=== PATIENT | female | born 1965 | race Caucasian/White ===

== ENCOUNTER 2019-06-15 08:28 | Emergency (ER) | payer BC ==
[2019-06-15 08:34] VITALS: RESP 18; TEMP 98.1
--- NOTE | 2019-06-15 09:04 | ED ---
SOB HPI - General Chief Complaint: Shortness of Breath Stated Complaint: SOB Time Seen by Provider: 06/15/19 08:40 Source: patient Mode of arrival: ambulatory Limitations: no limitations - History of Present Illness Initial Comments: 54-year-old female who denies PMH presenting today for chief complaint of shortness of breath chest discomfort cough body aches x 6 days. Patient states that her symptoms began on June 08 she developed some shortness of breath while ambulating and had a cough at that time. She states she has occasional body aches. Admits to diarrhea x 3 days. Patient now stateshas noticed some discomfort in the chest she states it feels tight but does not feel like this is chest pain. Patient denies any jaw or arm pain. Denies pain with deep inspiration denies any leg swelling. Patient denies a known history of DVT pulmonary embolism hemoptysis recent travel recent immobilization patient states that 3 of her co-workers family members have tested positive for Covid-19, no direct contact. Patient denies recording fevers at home. Patient denies any other complaints. Upon arrival patient does appear well there is no signs of acute distress. - Related Data Home Medications Medication Instructions Recorded Confirmed Albuterol Nebulized [Ventolin 2.5 mg INHALATION RT-Q4H PRN 06/15/19 06/15/19 Nebulized] Albuterol Sulfate [Proair Hfa] 1 - 2 puff INHALATION RT-Q6H PRN 06/15/19 0410/26 Estradiol Cream [Estrace Cream 1 gm VAGINAL Q7DAYS PRN 06/15/19 06/15/19 0.01%] Estradiol [Estradiol 0.1 MG Patch] 1 patch TRANSDERM MOTH 06/15/19 06/15/19 Lansoprazole [Prevacid] 30 mg PO BID 06/15/19 06/15/19 Previous Rx's Medication Instructions Recorded Azithromycin [Zithromax] 0 mg PO DIRECTED #6 tab 06/15/19 Allergies Allergy/AdvReac Type Severity Reaction Status Date / Time aspirin Allergy Unknown Verified 06/15/19 10:43 Review of Systems ROS Statement: Those systems with pertinent positive or pertinent negative responses have been documented in the HPI. ROS Other: All systems not noted in ROS Statement are negative. Past Medical History Past Medical History: No Reported History History of Any Multi-Drug Resistant Organisms: None Reported Past Surgical History: Hysterectomy, Orthopedic Surgery Additional Past Surgical History / Comment(s): hand Past Psychological History: No Psychological Hx Reported Smoking Status: Never smoker Past Alcohol Use History: None Reported Past Drug Use History: None Reported General Exam - General Exam Comments Initial Comments: General: The patient is awake and alert, in no distress, and does not appear acutely ill. Eye: +3 mm pupils are equal, round and reactive to light, extra-ocular movements are intact. No nystagmus. There is normal conjunctiva bilaterally. No signs of icterus. Ears, nose, mouth and throat: There are moist mucous membranes and no oral lesions. Neck: The neck is supple, there is no tenderness or JVD. Cardiovascular: There is a regular rate and rhythm. No murmur, rub or gallop is appreciated. Respiratory: Lungs are clear to auscultation, respirations are non-labored, breath sounds are equal. No wheezes, stridor, rales, or rhonchi. Dry cough Gastrointestinal: Soft, non-distended, non-tender abdomen without masses or organomegaly noted. There is no rebound or guarding present. Musculoskeletal: Normal ROM, no tenderness. Strength 5/5. Sensation intact. Radial pulses equal bilaterally 2+. Neurological: A&O x 3. CN II-XII intact, There are no obvious motor or sensory deficits. Coordination appears grossly intact. Speech is normal. Skin: Skin is warm and dry and no rashes or lesions are noted. No leg swelling or calf pain. No LE edema. Psychiatric: Cooperative, appropriate mood & affect, normal judgment. Limitations: no limitations Course Vital Signs 06/15/19 06/15/19 06/15/19 08:30 08:57 09:00 Temperature 98.1 F Pulse Rate 109 H 84 Respiratory 18 18 18 Rate Blood Pressure 145/81 128/86 O2 Sat by Pulse 100 100 Oximetry 06/15/19 06/15/19 10:00 10:43 Temperature Pulse Rate 80 88 Respiratory 18 18 Rate Blood Pressure 126/82 120/78 O2 Sat by Pulse 100 98 Oximetry Medical Decision Making - Medical Decision Making 54yo female presenting today for cc of cough, body aches, diarrhea, SOB. Patient troponin (-). Mildly elevated LDH. No leukopenia or leukocytosis. Patient kidney and liver function within acceptable limits. Pt complained of nausea, stating everytime she gets a URI or sick with diarrhea she gets its requesting zofran. CXR reveal no significant consolidated infiltrates. With patient history this could be Covid infection, however oxygen saturation is 100% no significant infiltrates, she does not appears unwell/tonxic or in acute respiratory distress. Provided inhaler in ER. Patient case discussed with Dr Barth, we recommend isolation and return to work per primary care provider. - Lab Data Result diagrams: 06/15/19 08:54 06/15/19 08:54 Lab Results 06/15/19 06/15/19 06/15/19 Range/Units 08:54 08:54 08:54 WBC 4.7 (3.8-10.6) k/uL RBC 4.94 (3.80-5.40) m/uL Hgb 15.8 (11.4-16.0) gm/dL Hct 46.9 H (34.0-46.0) % MCV 94.9 (80.0-100.0) fL MCH 32.0 (25.0-35.0) pg MCHC 33.7 (31.0-37.0) g/dL RDW 11.8 (11.5-15.5) % Plt Count 234 (150-450) k/uL Neutrophils % 73 % Lymphocytes % 17 % Monocytes % 5 % Eosinophils % 2 % Basophils % 0 % Neutrophils # 3.4 (1.3-7.7) k/uL Lymphocytes # 0.8 L (1.0-4.8) k/uL Monocytes # 0.3 (0-1.0) k/uL Eosinophils # 0.1 (0-0.7) k/uL Basophils # 0.0 (0-0.2) k/uL PT 10.2 (9.0-12.0) sec INR 1.0 (<1.2) APTT 24.4 (22.0-30.0) sec Sodium 136 L (137-145) mmol/L Potassium 3.8 (3.5-5.1) mmol/L Chloride 103 (98-107) mmol/L Carbon Dioxide 25 (22-30) mmol/L Anion Gap 8 mmol/L BUN 14 (7-17) mg/dL Creatinine 0.73 (0.52-1.04) mg/dL Est GFR (CKD-EPI)AfAm >90 (>60 ml/min/1.73 sqM) Est GFR (CKD-EPI)NonAf >90 (>60 ml/min/1.73 sqM) Glucose 92 (74-99) mg/dL Plasma Lactic Acid Thierno (0.7-2.0) mmol/L Calcium 9.3 (8.4-10.2) mg/dL Magnesium 2.1 (1.6-2.3) mg/dL Total Bilirubin 0.7 (0.2-1.3) mg/dL AST 27 (14-36) U/L ALT 15 (4-34) U/L Alkaline Phosphatase 42 (38-126) U/L Lactate Dehydrogenase 632 H (313-618) U/L Troponin I (0.000-0.034) ng/mL NT-Pro-B Natriuret Pep pg/mL Total Protein 7.1 (6.3-8.2) g/dL Albumin 4.5 (3.5-5.0) g/dL 06/15/19 06/15/19 06/15/19 Range/Units 08:54 08:54 08:54 WBC (3.8-10.6) k/uL RBC (3.80-5.40) m/uL Hgb (11.4-16.0) gm/dL Hct (34.0-46.0) % MCV (80.0-100.0) fL MCH (25.0-35.0) pg MCHC (31.0-37.0) g/dL RDW (11.5-15.5) % Plt Count (150-450) k/uL Neutrophils % % Lymphocytes % % Monocytes % % Eosinophils % % Basophils % % Neutrophils # (1.3-7.7) k/uL Lymphocytes # (1.0-4.8) k/uL Monocytes # (0-1.0) k/uL Eosinophils # (0-0.7) k/uL Basophils # (0-0.2) k/uL PT (9.0-12.0) sec INR (<1.2) APTT (22.0-30.0) sec Sodium (137-145) mmol/L Potassium (3.5-5.1) mmol/L Chloride (98-107) mmol/L Carbon Dioxide (22-30) mmol/L Anion Gap mmol/L BUN (7-17) mg/dL Creatinine (0.52-1.04) mg/dL Est GFR (CKD-EPI)AfAm (>60 ml/min/1.73 sqM) Est GFR (CKD-EPI)NonAf (>60 ml/min/1.73 sqM) Glucose (74-99) mg/dL Plasma Lactic Acid Thierno 1.5 (0.7-2.0) mmol/L Calcium (8.4-10.2) mg/dL Magnesium (1.6-2.3) mg/dL Total Bilirubin (0.2-1.3) mg/dL AST (14-36) U/L ALT (4-34) U/L Alkaline Phosphatase (38-126) U/L Lactate Dehydrogenase (313-618) U/L Troponin I <0.012 (0.000-0.034) ng/mL NT-Pro-B Natriuret Pep 69 pg/mL Total Protein (6.3-8.2) g/dL Albumin (3.5-5.0) g/dL Disposition Clinical Impression: Cough, Shortness of breath Disposition: HOME SELF-CARE Condition: Good Instructions (If sedation given, give patient instructions): Upper Respiratory Infection (ED) Additional Instructions: Please use medication as discussed. Please follow-up with family doctor in the next 2 days. Self quarantine for the next 14 days. Please return to emergency room if the symptoms increase or worsen or for any other concerns. Prescriptions: Azithromycin [Zithromax] 0 mg PO DIRECTED #6 tab Is patient prescribed a controlled substance at d/c from ED?: No Referrals: Suellen Bravo DO [Primary Care Provider] - 1-2 days Time of Disposition: 10:19
[2019-06-15 09:11] LABS: Basophils % (A) 0 %; Eosinophils # (A) 0.1 k/uL (0-0.7); Eosinophils % (A) 2 %; HCT 46.9 % (34.0-46.0); HGB 15.8 gm/dL (11.4-16.0); Lymphocytes # (A) 0.8 k/uL (1.0-4.8); Lymphocytes % (A) 17 %; MCHC 33.7 g/dL (31.0-37.0); MCV 94.9 fL (80.0-100.0); Mean Platelet Volume 7.2; Monocytes # (A) 0.3 k/uL (0-1.0); Monocytes % (A) 5 %; Neutrophils # (A) 3.4 k/uL (1.3-7.7); Neutrophils % (A) 73 %; Platelet Count 234 k/uL (150-450); RBC 4.94 m/uL (3.80-5.40); RDW 11.8 % (11.5-15.5); WBC 4.7 k/uL (3.8-10.6)
--- NOTE | 2019-06-15 09:15 | XR ---
EXAMINATION TYPE: XR chest 2V DATE OF EXAM: 06/15/2019 COMPARISON: NONE HISTORY: Shortness of breath TECHNIQUE: Frontal and lateral views of the chest are obtained. FINDINGS: Scattered senescent parenchymal changes noted. Hyperinflation compatible with COPD. No evidence for infiltrate. No evidence for atelectasis. Heart size is stable. Mediastinal structures are stable and grossly unremarkable. No evidence for hilar prominence. Degenerative changes dorsal spine. IMPRESSION: 1. No evidence for acute pulmonary disease.
[2019-06-15 09:20] LABS: Partial Thromboplastin Time 24.4 sec (22.0-30.0); Prothrombin Time 10.2 sec (9.0-12.0)
[2019-06-15] MEDS ORDERED: ALBUTEROL HFA INHALER INHALATION STA (09:20)
[2019-06-15 09:21] LABS: ALT 15 U/L (4-34); AST 27 U/L (14-36); African American GFR (CKD) >90 (>60 ml/min/1.73 sqM); Albumin 4.5 g/dL (3.5-5.0); Alkaline Phosphatase 42 U/L (38-126); Anion Gap 8 mmol/L; Blood Urea Nitrogen 14 mg/dL (7-17); Calcium 9.3 mg/dL (8.4-10.2); Carbon Dioxide 25 mmol/L (22-30); Chloride 103 mmol/L (98-107); Glucose 92 mg/dL (74-99); LDH 632 U/L (313-618); Magnesium 2.1 mg/dL (1.6-2.3); Non-African American GFR(CKD) >90 (>60 ml/min/1.73 sqM); Sodium 136 mmol/L (137-145); Total Bilirubin 0.7 mg/dL (0.2-1.3); Total Protein 7.1 g/dL (6.3-8.2)
[2019-06-15 09:26] LABS: Potassium 3.8 mmol/L (3.5-5.1)
[2019-06-15] MEDS ORDERED: ONDANSETRON 4 MG ODT STARTER PACK 2 TAB BTL PO STA (10:31)
[2019-06-15 10:50] VITALS: BP 120/78; PULSE 88
[2019-06-15 15:31] LABS: Ferritin 125.5 ng/mL (10.0-291.0)
== END 2019-06-15 10:43 | disposition home or self-care (01) ==
LOC: EC 08:28
DX: R06.02 Shortness of breath (principal); R05 Cough; R52 Pain, unspecified; R19.7 Diarrhea, unspecified; R74.0 Nonspecific elevation of levels of transaminase and lactic acid dehydrogenase [LDH]; R11.0 Nausea; R07.89 Other chest pain; Z88.6 Allergy status to analgesic agent; Z79.890 Hormone replacement therapy; Z79.899 Other long term (current) drug therapy
CPT/HCPCS: 36415; 94640; 93005; 83880; 80053; 82728; 83605; 83615; 83735; 84484; 85025; 85610; 85730; 71046; 99285; S0119